=== PATIENT | female | born 1975 | race Caucasian/White ===

== ENCOUNTER 2023-10-04 19:00 | Observation (INO) | payer BC ==
[2023-10-04 20:12] LABS: #Monocytes 0.6 thou/uL (0.11-0.59); #Neutrophils 10.4 thou/uL (1.40-6.50); %Basophils 0.1 % (0.0-1.0); %Eosinophils 0.2 % (0.0-10.0); %Lymphocytes 7.5 % (21.0-51.0); %Monocytes 4.7 % (0.0-10.0); %Neutrophils 87.2 % (42.0-75.0); Hemoglobin 14.2 g/dL (12.0-16.0); Mean Corpuscular Volume 84.8 fl (78.0-98.0); Mean Platelet Volume 9.9 fL (7.4-10.4); Platelet Count 211 10x3/uL (130-400); RBC Distribution Width 14.6 % (11.5-14.5); Red Blood Cell (RBC) Count 5.07 mill/uL (4.20-5.40)
[2023-10-04 20:37] LABS: ALT (SGPT) 81 U/L (8-55); AST (SGOT) 175 U/L (5-34); Albumin 4.2 g/dL (3.5-5.0); Alkaline Phosphatase 187 U/L (40-110); Anion Gap 15 mmol/L (10-20); BUN (Urea Nitrogen) 11 mg/dL (7.0-18.7); Bilirubin, Total 1.4 mg/dL (0.2-1.2); Calc. Creatinine Clearance 0 mL/min (70-130); Calcium 9.2 mg/dL (7.8-10.44); Carbon Dioxide 22 mmol/L (22-29); Chloride 104 mmol/L (98-107); Estimated GFR 81; Globulin 2.6 g/dL (2.4-3.5); Glucose 119 mg/dL (70-105); Lipase 72 U/L (8-78); Potassium 4.2 mmol/L (3.5-5.1); Protein, Total 6.8 g/dL (6.0-8.3); Sodium 137 mmol/L (136-145)
[2023-10-04] MEDS ORDERED: Morphine 4 MG/ML VIAL ONE ×2 (20:39→23:03)
[2023-10-04] MEDS ORDERED: Ondansetron PF 4 MG/2 ML Vial ONE ×2 (20:39→23:03)
[2023-10-04 20:40] LABS: Troponin I Less than 0.010 ng/mL (< 0.028)
[2023-10-04] MEDS ORDERED: Piperacillin/Tazobactam 4.5 GM VIAL ONE (22:49)
[2023-10-04] MEDS ORDERED: Sodium Chloride 0.9% 100 ML ONE (22:49)
[2023-10-04 23:29] LABS: Bacteria/HPF None Seen HPF (None Seen); Bilirubin Negative (Negative); Blood, Urine 2+ (Negative); CAUTI Indications for Culture Pelvic or flank pain; Clarity Clear (Clear); Glucose, Urine (Dipstick) Normal (Negative); Ketone, Urine Negative (Negative); Leukocyte Negative Leu/uL (Negative); Nitrite Negative (Negative); Protein, Urine (Dipstick) Negative (Neg-Trace); Specific Gravity, Urine 1.022 (1.002-1.036); WBC/HPF 0-3 HPF (0-3); pH, Urine 5.5 (5.0-9.0)
[2023-10-04 23:42] LABS: Urine Culture Reflex No No
[2023-10-05] MEDS ORDERED: D5 1/2 NS w/20 mEq KCL 1,000 ML IV SCH (02:00)
[2023-10-05] MEDS ORDERED: Morphine 4 MG/ML VIAL SLOW IVP PRN (02:00)
[2023-10-05] MEDS ORDERED: Ondansetron PF 4 MG/2 ML Vial IVP PRN (02:00)
[2023-10-05] MEDS ORDERED: Ondansetron ODT 4 MG TAB SL PRN (02:00)
[2023-10-05] MEDS ORDERED: D5 1/2 NS w/20 mEq KCL 1,000 ML ONE (02:06)
[2023-10-05 02:21] VITALS: BMI 34.6
[2023-10-05] MEDS ORDERED: Senokot S 8.6-50 MG TAB PO PRN (03:19)
[2023-10-05] MEDS ORDERED: traMADol HCl 50 MG TAB PO PRN ×2 (03:22→06:30)
[2023-10-05] MEDS ORDERED: Acetaminophen 500 MG TAB PO PRN (03:22)
[2023-10-05] MEDS ORDERED: Ketorolac Tromethamine 30 MG (1 mL) VIAL IVP PRN (03:22)
[2023-10-05 05:21] LABS: #Eosinphils 0.1 thou/uL (0.0-0.7); #Monocytes 0.4 thou/uL (0.11-0.59); #Neutrophils 4.2 thou/uL (1.40-6.50); %Basophils 0.5 % (0.0-1.0); %Eosinophils 1.9 % (0.0-10.0); %Lymphocytes 19.4 % (21.0-51.0); %Monocytes 7.1 % (0.0-10.0); %Neutrophils 70.9 % (42.0-75.0); Hematocrit 39.3 % (36.0-47.0); Hemoglobin 13.1 g/dL (12.0-16.0); Mean Corpuscular HGB CONC 33.3 g/dL (32.0-36.0); Mean Corpuscular Hemoglobin 28.5 pg (27.0-31.0); Mean Corpuscular Volume 85.6 fl (78.0-98.0); Mean Platelet Volume 9.6 fL (7.4-10.4); Platelet Count 167 10x3/uL (130-400); RBC Distribution Width 14.6 % (11.5-14.5); Red Blood Cell (RBC) Count 4.59 mill/uL (4.20-5.40); White Blood Cell (WBC) Count 5.9 10x3/uL (4.8-10.8)
[2023-10-05 05:52] LABS: ALT (SGPT) 265 U/L (8-55); AST (SGOT) 300 U/L (5-34); Albumin 3.5 g/dL (3.5-5.0); Alkaline Phosphatase 180 U/L (40-110); Anion Gap 10 mmol/L (10-20); BUN (Urea Nitrogen) 8 mg/dL (7.0-18.7); Bilirubin, Total 1.3 mg/dL (0.2-1.2); Calc. Creatinine Clearance 125 mL/min (70-130); Carbon Dioxide 23 mmol/L (22-29); Chloride 108 mmol/L (98-107); Estimated GFR 83; Globulin 2.5 g/dL (2.4-3.5); Glucose 105 mg/dL (70-105); Potassium 4.1 mmol/L (3.5-5.1); Sodium 137 mmol/L (136-145)
[2023-10-05 06:36] LABS: Pregnancy Test - Urine (BHCG) Negative (Negative); Pregu Control Background? CLEAR/WHITE (CLR/WHITE); Pregu Control Bar Appear? YES (CONTROL BAR)
[2023-10-05] MEDS ORDERED: Estradiol 1 MG TAB PO SCH (09:00)
[2023-10-05] MEDS ORDERED: ALPRAZolam 1 MG TAB PO SCH (09:00)
[2023-10-05] MEDS ORDERED: Pantoprazole 40 MG VIAL IVP SCH (09:00)
[2023-10-05] MEDS ORDERED: FLUoxetine HCl 20 MG CAP PO SCH (09:00)
[2023-10-05] MEDS ORDERED: Ibuprofen 600 MG TAB PO PRN (09:13)
[2023-10-05] MEDS ORDERED: Piperacillin/Tazobactam 3.375 GM VIAL ONE (09:36)
[2023-10-05] MEDS ORDERED: Sodium Chloride 0.9% 100 ML ONE (09:36)
[2023-10-05] MEDS ORDERED: EPINEPHrine 1 MG/ML VIAL ONE (10:03)
[2023-10-05] MEDS ORDERED: Bupivacaine 0.25% HCL 30 ML VIAL ONE (10:03)
[2023-10-05] MEDS ORDERED: Iopamidol 15 ML ONE (10:04)
[2023-10-05] MEDS ORDERED: PROPOFOL 20 ML ONE (10:05)
[2023-10-05] MEDS ORDERED: Lidocaine 2% PF 100 mg/5 ml Syringe ONE (10:05)
[2023-10-05] MEDS ORDERED: fentaNYL 50 mcg/mL 1 mL Vial ONE ×3 (10:06→11:54)
[2023-10-05] MEDS ORDERED: Lidocaine 2% PF 5 ML VIAL ONE (10:06)
[2023-10-05] MEDS ORDERED: Glucagon 1 MG/ML KIT ONE (10:56)
[2023-10-05] MEDS ORDERED: SUGAMMADEX SODIUM 200 MG/2 ML VIAL ONE (11:11)
[2023-10-05] MEDS ORDERED: fentaNYL PF 100 MCG/2 ML SYRINGE ONE (11:27)
[2023-10-05] MEDS ORDERED: Labetalol HCl 100 MG/20 ML VIAL ONE (11:49)
[2023-10-05 14:27] VITALS: BP 118/78; TEMP 97.8
[2023-10-05] MEDS ORDERED: Atorvastatin Calcium 20 MG TAB PO SCH (21:00)
[2023-10-05] MEDS ORDERED: Melatonin 3 MG TAB PO SCH (21:00)
== END 2023-10-05 14:17 | disposition home or self-care (01) ==
LOC: ERS 19:00 → ERHOLD 23:02 → T4-A 10-05 08:08
PROVIDERS: ADMIT Specialist; ATTEND Specialist
PROC: 0FT44ZZ Resection of Gallbladder, Percutaneous Endoscopic Approach (ICD-10-PCS; principal; 2023-10-05)
DX: K80.12 Calculus of gallbladder with acute and chronic cholecystitis without obstruction (principal); F17.210 Nicotine dependence, cigarettes, uncomplicated; F41.9 Anxiety disorder, unspecified; E78.00 Pure hypercholesterolemia, unspecified; R74.01 Elevation of levels of liver transaminase levels; Z90.710 Acquired absence of both cervix and uterus; Z90.721 Acquired absence of ovaries, unilateral; Z98.890 Other specified postprocedural states; Z79.899 Other long term (current) drug therapy
CPT/HCPCS: 36415; 47532; 71045; 76705; 80053; 81001; 81025; 83690; 84484; 85025; 88304; 93005; 96365; 96366; 96375; C1889; G0378; J0171; J1611; J2001; J2270; J2405; J2543; J2704; J3010; J3480; J3490; Q9967; S0020